=== PATIENT | female | born 1960 | race Caucasian/White ===

== ENCOUNTER 2020-05-20 07:02 | Outpatient (REF) | payer OTHER, SELFPAY ==
[2020-05-20 07:38] LABS: MANUAL DIFF FLAG NO
[2020-05-20 07:40] LABS: Basophils Absolute Auto 0.1 X10*3/uL (0.0-0.2); Basophils Percent Auto 0.9 % (0-2); Eosinophils Absolute Auto 0.2 X10*3/uL (0.0-0.4); Hematocrit 45.7 % (37-47); Hemoglobin 15.3 g/dl (12.0-16.0); Imm Gran Abs Auto 0.01 X10*3/uL (0.00-0.03); Imm Gran Pct Auto 0.2 % (0.0-0.4); Lymphocytes Absolute Auto 2.2 X10*3/uL (1.2-4.9); Lymphocytes Percent Auto 34.8 % (20-40); Mean Corpuscular HGB Conc 33.5 g/dl (31.0-35.0); Mean Corpuscular Hemoglobin 29.6 pg (27.0-33.0); Mean Corpuscular Volume 88.4 fL (80-98); Mean Platelet Volume 9.3 fL (9.4-12.3); Monocytes Absolute Auto 0.5 X10*3/uL (0.1-1.2); Monocytes Percent Auto 7.1 % (2-11); Neutrophils Absolute Auto 3.4 X10*3/uL (2.0-8.3); Platelet Count 278 X10*3/uL (160-400); Red Blood Count 5.17 X10*6/uL (4.20-5.50); White Blood Count 6.3 X10*3/uL (4.8-10.8)
[2020-05-20 08:35] LABS: Alanine Aminotransferase 18 U/L (0-31); Albumin Level 4.2 g/dL (3.5-5.0); Alkaline Phosphatase 97 U/L (39-117); Anion Gap 10 (12-20); Aspartate Amino Transferase 14 U/L (5-31); Bilirubin Total 0.6 mg/dL (0.0-1.0); Blood Urea Nitrogen 15 mg/dL (9-16); Calcium 9.6 mg/dL (8.4-10.2); Carbon Dioxide 27 mmol/L (22-29); Chloride 106 mmol/L (96-108); Cholesterol 199 mg/dL; Estimated Glomerular Filt Rate > 60; Glucose Fasting 87 mg/dL (60-99); HDL Cholesterol 61 mg/dL; LDL Cholesterol Calculated 119 mg/dl; Potassium 4.3 mmol/L (3.3-5.1); Sodium 139 mmol/L (135-145); Total Protein 6.9 g/dL (6.5-8.0); Triglycerides 96 mg/dL
== END 2020-05-20 07:03 | disposition home or self-care (01) ==
LOC: HO.LAB 07:02
PROVIDERS: PCP Internal Medicine; Visit Provider Internal Medicine
DX: Z00.00 Encounter for general adult medical examination without abnormal findings (principal); E11.9 Type 2 diabetes mellitus without complications; E03.9 Hypothyroidism, unspecified
CPT/HCPCS: 36415; 80053; 80061; 84443; 85025

== ENCOUNTER 2021-03-19 07:53 | Outpatient (REF) | payer OTHER, SELFPAY ==
[2021-03-19 08:04] LABS: MANUAL DIFF FLAG NO
[2021-03-19 09:56] LABS: Basophils Percent Auto 0.4 % (0-2); Eosinophils Absolute Auto 0.1 X10*3/uL (0.0-0.4); Eosinophils Percent Auto 1.9 % (0-4); Hematocrit 46.3 % (37.0-47.0); Hemoglobin 15.3 g/dl (12.0-16.0); Imm Gran Abs Auto 0.01 X10*3/uL (0.00-0.03); Imm Gran Pct Auto 0.2 % (0.0-0.4); Lymphocytes Absolute Auto 1.1 X10*3/uL (1.2-4.9); Lymphocytes Percent Auto 22.8 % (20-40); Mean Corpuscular Hemoglobin 29.5 pg (27.0-33.0); Mean Corpuscular Volume 89.2 fL (80.0-98.0); Mean Platelet Volume 9.8 fL (9.4-12.3); Monocytes Absolute Auto 0.6 X10*3/uL (0.1-1.2); Monocytes Percent Auto 11.9 % (2-11); Neutrophils Percent Auto 62.8 % (45-73); Platelet Count 261 X10*3/uL (160-400); Red Blood Count 5.19 X10*6/uL (4.20-5.50); Red Cell Distribution Width 14.3 % (11.0-16.0); White Blood Count 4.8 X10*3/uL (4.8-10.8)
[2021-03-19 10:25] LABS: Alanine Aminotransferase 21 U/L (0-31); Albumin Level 4.2 g/dL (3.5-5.0); Alkaline Phosphatase 105 U/L (39-117); Anion Gap 10 (12-20); Aspartate Amino Transferase 16 U/L (5-31); Bilirubin Total 0.5 mg/dL (0.0-1.0); Blood Urea Nitrogen 15 mg/dL (9-16); Calcium 9.5 mg/dL (8.4-10.2); Carbon Dioxide 27 mmol/L (22-29); Chloride 108 mmol/L (96-108); Cholesterol 211 mg/dL; Estimated Glomerular Filt Rate > 60; Glucose Fasting 90 mg/dL (60-99); HDL Cholesterol 55 mg/dL; LDL Cholesterol Calculated 136 mg/dl; Potassium 4.4 mmol/L (3.3-5.1); Sodium 141 mmol/L (135-145); Triglycerides 102 mg/dL
[2021-03-19 10:38] LABS: Thyroid Stimulating Hormone 0.56 uIU/mL (0.32-4.0); Vitamin D 25-OH Total 26.8 ng/mL (>30)
== END 2021-03-19 07:54 | disposition home or self-care (01) ==
LOC: HO.LAB 07:53
PROVIDERS: PCP Internal Medicine; Visit Provider Internal Medicine
DX: Z00.00 Encounter for general adult medical examination without abnormal findings (principal); Z13.0 Encounter for screening for diseases of the blood and blood-forming organs and certain disorders involving the immune mechanism; Z13.9 Encounter for screening, unspecified
CPT/HCPCS: 36415; 80053; 80061; 82306; 84443; 85025

== ENCOUNTER 2021-04-19 09:36 | Outpatient (REF) | payer OTHER, SELFPAY ==
--- NOTE | ~2021-04-19 | MR_ITS ---
EXAMINATION: MR BREAST WITHOUT AND WITH CONTRAST, BILATERAL CLINICAL INFORMATION: High-risk screening. Mother and sister with premenopausal breast cancer. Left breast surgery. Dense breasts reported. Right breast fibroadenoma reported at 9 o'clock following ultrasound biopsy. COMPARISON: No images available for comparison at this time. TECHNIQUE: Utilizing a high-field scanner and dedicated breast coil, and prior to the administration of contrast, T1-weighted sequences without fat-saturation were obtained in the axial and sagittal plane. Axial fat-saturated T1 and T2-weighted sequences were also acquired. After the administration of contrast, multiple sequential dynamic T1-weighted sequences were obtained through both breasts in the axial plane with fat-saturation. Subtracted images were reviewed. CAD postprocessing with 3-D reconstructions, maximum intensity projections and kinetic analysis was performed by the interpreting radiologist at an independent workstation and reviewed as a portion of this exam. CONTRAST DOSE: The patient received 6 mL of Gadavist intravenously without incident. FINDINGS: The breasts appear comprised of dense fibroglandular parenchyma. The tissue undergoes moderate background enhancement. LEFT BREAST: A reniform 6 mm mass at 2 o'clock posteriorly (image 53/106) is T2 bright with mixed enhancement kinetics, consistent with an intraparenchymal node. A 2 mm focus of enhancement at 5 o'clock, 2 cm from the nipple, (image 85/106). T2 isointense with type III rapid washout enhancement kinetics. RIGHT BREAST: A 12 mm mass at 9 o'clock, 4 cm from the nipple. Associated clip artifact. T2 bright with type I and type II plateau enhancement kinetics. Fibroadenoma reported at outside biopsy on 07/08/2016 with size noted at 10 mm on ultrasound. The axillary lymph nodes are morphologically normal. No suspicious internal mammary lymph nodes are seen. The imaged portions of the chest and upper abdomen are grossly unremarkable. MR/MR breast BI wo con IMPRESSION: 1. A 2 mm focus of left breast enhancement at 5 o'clock. 2. A left breast intramammary node at 2 o'clock. 3. A previously biopsied right breast mass at 9 o'clock. ASSESSMENT: LEFT BREAST: BI-RADS 0 - Incomplete: Needs additional imaging. RIGHT BREAST: BI-RADS 0 - Incomplete: Needs additional imaging. RECOMMENDATIONS: Prior studies for comparison.
== END 2021-04-19 09:37 | disposition home or self-care (01) ==
LOC: HO.MRI 09:36
PROVIDERS: Visit Provider Internal Medicine
DX: R92.2 Inconclusive mammogram (principal)
CPT/HCPCS: 77047; A9585

== ENCOUNTER 2021-05-13 10:49 | Outpatient (REF) | payer OTHER, SELFPAY ==
--- NOTE | ~2021-05-13 | XR_ITS ---
EXAMINATION: XR KNEE, RIGHT CLINICAL INFORMATION: Right knee pain. COMPARISON: None TECHNIQUE: Two views of the right knee. FINDINGS: Mild femoral-tibial degenerative joint changes are seen with mild chondrocalcinosis. There is no acute fracture, dislocation or joint effusion. The soft tissues are unremarkable. XR/XR knee RT 2V IMPRESSION: Mild femoral-tibial degenerative joint changes. No acute abnormality.
--- NOTE | ~2021-05-13 | XR_ITS ---
EXAMINATION: XR KNEE, LEFT CLINICAL INFORMATION: Left knee pain. COMPARISON: None TECHNIQUE: Two views of the left knee. FINDINGS: Mild femoral-tibial degenerative joint changes are seen with mild chondrocalcinosis. There is a small suprapatellar joint effusion. No acute fractures seen. The soft tissues are unremarkable. XR/XR knee LT 2V IMPRESSION: 1. Mild femoral-tibial degenerative joint changes. 2. Small suprapatellar joint effusion.
== END 2021-05-13 10:50 | disposition home or self-care (01) ==
LOC: HO.XRAY 10:49
PROVIDERS: PCP Internal Medicine; Visit Provider Internal Medicine
DX: M25.561 Pain in right knee (principal); M25.562 Pain in left knee
CPT/HCPCS: 73560

== ENCOUNTER 2022-03-15 11:37 | Outpatient (REF) | payer OTHER, SELFPAY ==
[2022-03-15 11:52] LABS: MANUAL DIFF FLAG NO
[2022-03-15 12:35] LABS: Basophils Percent Auto 0.7 % (0-2); Eosinophils Absolute Auto 0.1 X10*3/uL (0.0-0.4); Eosinophils Percent Auto 2.3 % (0-4); Hematocrit 46.4 % (37.0-47.0); Hemoglobin 15.8 g/dl (12.0-16.0); Imm Gran Abs Auto 0.01 X10*3/uL (0.00-0.03); Imm Gran Pct Auto 0.2 % (0.0-0.4); Lymphocytes Absolute Auto 2.1 X10*3/uL (1.2-4.9); Lymphocytes Percent Auto 34.8 % (20-40); Mean Corpuscular HGB Conc 34.1 g/dl (31.0-35.0); Mean Corpuscular Hemoglobin 29.8 pg (27.0-33.0); Mean Corpuscular Volume 87.5 fL (80.0-98.0); Mean Platelet Volume 9.3 fL (9.4-12.3); Monocytes Absolute Auto 0.7 X10*3/uL (0.1-1.2); Monocytes Percent Auto 11.2 % (2-11); Neutrophils Absolute Auto 3.1 x10*3/uL (2.0-8.3); Neutrophils Percent Auto 50.8 % (45-73); Platelet Count 276 X10*3/uL (160-400)
[2022-03-15 12:59] LABS: Anion Gap 12 (12-20); Blood Urea Nitrogen 13 mg/dL (9-16); Calcium 9.3 mg/dL (8.4-10.2); Carbon Dioxide 25 mmol/L (22-29); Chloride 108 mmol/L (96-108); Estimated Glomerular Filt Rate > 60; Glucose Random 91 mg/dL (60-115); Potassium 4.5 mmol/L (3.3-5.1); Sodium 140 mmol/L (135-145)
== END 2022-03-15 11:38 | disposition home or self-care (01) ==
LOC: HO.LAB 11:37
PROVIDERS: PCP Internal Medicine; Visit Provider Internal Medicine
DX: R10.9 Unspecified abdominal pain (principal); D64.9 Anemia, unspecified
CPT/HCPCS: 36415; 80048; 85025

== ENCOUNTER 2022-03-17 17:08 | Observation (INO) | payer OTHER, SELFPAY ==
--- NOTE | ~2022-03-17 | US_ITS ---
EXAMINATION: US ABDOMEN LIMITED CLINICAL INFORMATION: Epigastric pain. COMPARISON: None TECHNIQUE: Real-time imaging of the right upper quadrant abdominal viscera. FINDINGS: PANCREAS: Normal. LIVER: Normal. The liver is normal in size. The liver contour is normal. Parenchymal echogenicity is normal. No focal hepatic lesion. There is no intrahepatic biliary duct dilatation seen. GALLBLADDER: 4 mm calcific structure within the gallbladder probably a stone. The gallbladder is physiologically distended without evidence of , sludge, polyps, wall thickening or pericholecystic fluid. Technologist reported tenderness pressing on the gallbladder. No other signs to suggest cholecystitis. COMMON BILE DUCT: Normal in caliber measuring 0.4 cm in diameter. FREE FLUID: None. US/US abdomen limited IMPRESSION: * There is 4 mm echogenic structure within the gallbladder likely a gallstone. *Technologist reported tenderness pressing on the gallbladder however no other signs to suggest cholecystitis. No gallbladder wall thickening, pericholecystic fluid or dilatation of CBD, If there is high index of suspicion for possible cholecystitis, May consider correlation with follow-up HIDA scan.
--- NOTE | ~2022-03-17 | CT_ITS ---
EXAMINATION: CT ABDOMEN AND PELVIS WITHOUT CONTRAST CLINICAL INFORMATION: Melena COMPARISON: None TECHNIQUE: Multidetector volumetric imaging was performed from the superior aspect of the liver through the pubic symphysis. Sagittal and coronal reformatted images were obtained on the technologist's workstation. This CT examination was performed using dose optimization techniques as appropriate, variously including the following: *Automated exposure control *Adjustment of mA and/or kV according to patient size (this includes techniques or standardized protocols for targeted exams where dose is matched to indication/reason for exam; i.e. extremities or head) *Use of iterative reconstruction technique DLP: 389 mGy-cm FINDINGS: LUNG BASES: The visualized lung bases are unremarkable. LIVER, GALLBLADDER, AND BILIARY TREE: The liver is normal in size, shape, and attenuation. No focal hepatic lesion or biliary ductal dilatation is present. There is a 2 mm gallbladder wall calcification. No wall thickening seen. No pericholecystic fluid collection. PANCREAS: Unremarkable. SPLEEN: Unremarkable. ADRENAL GLANDS: Unremarkable. KIDNEYS AND URETERS: The kidneys are normal in size, shape, and attenuation. There are several radiopaque calculi a 2 mm in the upper pole, 1 mm in the lower pole left kidney, 2 mm in the lower pole right kidney. No caliectasis seen. There is no hydronephrosis. Is a 2 mm radiopaque stones in the upper and lower pole. BLADDER: Unremarkable. GASTROINTESTINAL TRACT: There is scattered oral contrast and diverticula seen throughout the colon there is mild mural thickening involving the sigmoid colon but no pericolic fat stranding seen. Findings are suspicious for inflammatory or infectious colitis. ABDOMINAL WALL: No significant hernia is appreciated. LYMPH NODES: There are small mesenteric lymph nodes. VASCULAR: Unremarkable. PELVIC VISCERA: The uterus is anteverted and appears unremarkable. No free fluid. No abnormal pelvic or inguinal lymph nodes. OSSEOUS STRUCTURES: Unremarkable. CT/CT abdomen pelvis wo IV con IMPRESSION: 1. Diffuse colonic diverticulosis without diverticulitis. There is mild mural thickening involving the sigmoid colon but no pericolic fat stranding seen. Findings are suspicious for inflammatory or infectious colitis. 2. Bilateral nonobstructive radiopaque renal calculi without caliectasis or hydronephrosis. 3. Punctate calcification along the gallbladder wall less likely stone Fleischner guidelines were followed.
--- NOTE | 2022-03-17 17:25 | ED.GIBLEED ---
HPI - GI Bleed General Stated complaint: Black stool Related Data Previous Rx's Medication Instructions Recorded valacyclovir 500 mg tablet 1,000 mg PO BID #20 tabs 07/23/21 omeprazole 20 mg tablet,delayed 20 mg PO BID #60 tabs 03/15/22 release Allergies Allergy/AdvReac Type Severity Reaction Status Date / Time No Known Allergies Allergy Verified 03/15/22 11:22 [facility] Past Medical History Medical History Herpes stomatitis Surgical History History of fusion of cervical spine Family History Family History Mother No problems noted. Father No problems noted. Social History Social History Housing: House Alcohol intake: never Patient Tobacco Use Status: Current everyday Tobacco user Tobacco use type: Cigarette Cigarettes Per Day: 5 e-Cigarette/Vaping Use: Never Used Second Hand Smoke Exposure: Yes service: No Current occupational status: employed Cognitive needs: No Hearing needs: No Vision needs: No Course Course Course Narrative: This is a rapid medical exam. deferred additional HPI, ROS, PE to primary provider. 62 yo female here with upper abdominal pain/abdominal distention since Monday, started to have black stools over the last few days. No nausea, vomiting, fevers. No NSAID use. No alcohol use. NO history of PUD/gastritis. Will obtain labs, UA, testing for flu, covid, rsv. VSS Discharge Plan Discharge Prescriptions: No Action valacyclovir 500 mg tablet 1,000 mg PO BID Qty: 20 0RF omeprazole 20 mg tablet,delayed release (DR/EC) 20 mg PO BID Qty: 60 1RF
[2022-03-17 17:26] VITALS: BP 131/77; PULSE 82; RESP 18; TEMP 37.1; O2SAT 99; BMI 23.3
[2022-03-17 17:51] LABS: MANUAL DIFF FLAG NO
[2022-03-17 17:54] LABS: Basophils Absolute Auto 0.1 X10*3/uL (0.0-0.2); Basophils Percent Auto 0.9 % (0-2); Eosinophils Absolute Auto 0.2 X10*3/uL (0.0-0.4); Eosinophils Percent Auto 2.6 % (0-4); Hematocrit 45.2 % (37.0-47.0); Hemoglobin 15.2 g/dl (12.0-16.0); Imm Gran Abs Auto 0.02 X10*3/uL (0.00-0.03); Imm Gran Pct Auto 0.3 % (0.0-0.4); Lymphocytes Absolute Auto 2.8 X10*3/uL (1.2-4.9); Lymphocytes Percent Auto 40.3 % (20-40); Mean Corpuscular HGB Conc 33.6 g/dl (31.0-35.0); Mean Corpuscular Hemoglobin 29.4 pg (27.0-33.0); Mean Corpuscular Volume 87.4 fL (80.0-98.0); Monocytes Absolute Auto 0.5 X10*3/uL (0.1-1.2); Monocytes Percent Auto 7.7 % (2-11); Neutrophils Absolute Auto 3.4 x10*3/uL (2.0-8.3); Neutrophils Percent Auto 48.2 % (45-73); Platelet Count 281 X10*3/uL (160-400); Red Blood Count 5.17 X10*6/uL (4.20-5.50); Red Cell Distribution Width 13.8 % (11.0-16.0)
[2022-03-17 17:58] LABS: Appearance Urine Clear; Color Urine Yellow; Glucose Urine UA Negative (Negative); Leukocyte Esterase Urine Negative (Negative); Nitrite Urine Negative (Negative); PH 6.5 (5.0-9.0); Urine Blood Negative (Negative); Urine Ketones Negative (Negative); Urine Protein Negative (Neg-Trace)
[2022-03-17 17:59] LABS: Prothrombin Time 11.4 SEC (10.0-13.1)
[2022-03-17 18:09] LABS: Alanine Aminotransferase 27 U/L (0-31); Albumin Level 4.1 g/dL (3.5-5.0); Alkaline Phosphatase 98 U/L (39-117); Anion Gap 10 (12-20); Aspartate Amino Transferase 16 U/L (5-31); Bilirubin Direct < 0.2 mg/dL (0.0-0.5); Bilirubin Total 0.3 mg/dL (0.0-1.0); Blood Urea Nitrogen 15 mg/dL (9-16); Calcium 9.5 mg/dL (8.4-10.2); Carbon Dioxide 26 mmol/L (22-29); Chloride 110 mmol/L (96-108); Creatinine Clr Calc Pharmacy 62.6; Estimated Glomerular Filt Rate > 60; Glucose Random 99 mg/dL (60-115); Potassium 4.3 mmol/L (3.3-5.1); Sodium 142 mmol/L (135-145); Total Protein 6.6 g/dL (6.5-8.0)
[2022-03-17 18:37] LABS: Influenza A PCR NEGATIVE (Negative); Influenza B PCR NEGATIVE (Negative); Resp Syncy Virus RNA Qual PCR NEGATIVE (Negative); SARS COV2 PCR INHOUSE NEGATIVE (Negative)
[2022-03-17 20:36] VITALS: BP 117/65; PULSE 65; RESP 16; TEMP 36.8; O2SAT 97
--- NOTE | 2022-03-17 21:30 | ED_ITS ---
HPI - GI Bleed General Chief complaint: Abdominal Pain Stated complaint: Black stool Time Seen by Provider: 03/17/22 21:21 Source: patient Mode of arrival: ambulatory Limitations: no limitations History of Present Illness HPI Narrative: 62-year-old female came in for evaluation of black stool. Patient's symptoms started 6 days ago with upper epigastric abdominal discomfort, then patient started to notice black stool today patient started to notice stool is black mixed with maroon color, patient complaining of very mild epigastric abdominal pain, but no nausea, no vomiting, no diarrhea, no recent use of antibiotic, no recent travel. Patient otherwise very healthy decline using any medication or anticoagulation therapy in particular. Had her 1st screening colonoscopy in her 50s and was unremarkable. Patient declines smoking or drinking alcohol only smokes pot sporadically. Related Data Previous Rx's Medication Instructions Recorded valacyclovir 500 mg tablet 1,000 mg PO BID #20 tabs 07/23/21 omeprazole 20 mg tablet,delayed 20 mg PO BID #60 tabs 03/15/22 release Allergies Allergy/AdvReac Type Severity Reaction Status Date / Time No Known Allergies Allergy Verified 03/15/22 11:22 Review of Systems Review of Systems: All other systems are reviewed and are negative Constitutional: Reports as per HPI and Reports no additional constitutional complaints Eyes: Reports as per HPI and Reports no additional eye complaints Reports system reviewed and no additional complaints, except as documented Cardiovascular: Reports as per HPI and Reports no additional cardiovascular complaints Respiratory: Reports as per HPI and Reports no additional respiratory complaints Gastrointestinal: Reports as per HPI and Reports no additional gastrointestinal complaints Genitourinary: Reports no additional female genitourinary complaints Musculoskeletal: Reports no additional musculoskeletal complaints Skin/Breast: Reports system reviewed and no additional complaints, except as docu Psychiatric: Reports no additional psychiatric complaints Endocrine: Reports no additional endocrine complaints Hematologic/Lymphatic: Reports no additional hematologic/lymphatic complaints Allergic/Immunologic: Reports no additional allergic/immunologic complaints Reports system reviewed and no additional complaints, except as documented and Reports Abnormal speech present [facility] Past Medical History Medical History Herpes stomatitis Surgical History History of fusion of cervical spine Family History Family History Mother No problems noted. Father No problems noted. Social History Social History Housing: House Alcohol intake: never Patient Tobacco Use Status: Current everyday Tobacco user Tobacco use type: Cigarette Cigarettes Per Day: 5 e-Cigarette/Vaping Use: Never Used Second Hand Smoke Exposure: Yes Advance Directives: No Advance Directives Information Provided: Yes service: No Current occupational status: employed Cognitive needs: No Hearing needs: No Vision needs: No Physical Exam Vital Signs: Vital Signs: Last Vital Signs Temp 98 F 03/17/22 22:06 Pulse 64 03/17/22 22:06 Resp 12 03/17/22 22:06 BP 117/62 03/17/22 22:06 Pulse Ox 96 03/17/22 22:06 O2 Del Method 03/17/22 22:06 BMI result Body Mass Index 23.3 Vital signs have been reviewed as appeared to be correct. Blood pressure normal. Heart rate normal. Respiration rate normal. Temperature normal. Oxygen saturation normal. Appearance: Alert. Oriented X3. No acute distress. Head: Normal external exam. Normocephalic. Atraumatic. No Estrella signs noted. No raccoon eyes noted Eyes: PERRLA. EOMI. Conjunctiva and sclera normal. Eyelids normal. ENT: TM's Normal. Pharynx normal. Uvula midline. Moist mucous membranes. No trismus noted. No drooling noted. No muffled voice noted. Neck: Normal inspection. Neck supple. FROM. No adenopathy. Thyroid Normal. No meningeal signs. No neck mass noted. CVS: Normal heart rate and rhythm. Heart sound normal. No murmurs noted. Pulses normal throughout. Respiratory: No respiratory distress. Painless inspiration. Breath sounds normal. No wheezes/rales/rhonchi noted. Chest nontender. No accessory muscle usage noted or decreased air movement noted. Abdomen: Soft and nontender. Bowel sounds normal in all 4 quadrants. No distention noted. No organomegaly noted. No visible injury noted. Rectal exam: Black stool guaiac positive. Back: No CVA tenderness. Full range of motion noted. Skin: Skin warm and dry. Normal skin color. Normal skin turgor. No rashes/lesions/lacerations noted. Extremities: No lower extremity edema. Extremities exhibit normal range of motion. Extremities nontender. Neuro: Oriented X 3. Cranial nerve exam: II-XII are grossly intact No motor deficit. No sensory deficit. Reflexes normal. Course Course Course Narrative: 62-year-old female came in for evaluation of melena and black stool, patient is not taking any anticoagulation, very mild epigastric pain and tenderness, no recent use of NSAIDs. CT abdomen pelvis is unremarkable. Start the patient on Protonix, admit for further evaluation. Medications Administered Discontinued Medications Generic Name Dose Route Start Last Admin Trade Name Freq PRN Reason Stop Dose Admin Pantoprazole Sodium 40 mg 03/17/22 21:29 03/17/22 21:56 Pantoprazole Sodium 40 Mg/10 Ml Vial IVPUSH 03/17/22 21:30 40 mg ONCE ONE Administration Medical Decision Making Differential Diagnosis Differential Diagnoses: The differential diagnosis associated with the presentation includes (For GI bleeding/perforated ulcer/gastritis/anemia/coagulopathy) Admission/Observation Consideration of admission/observation: Escalation of care including ad mission/observation considered Consult Healthcare Provider Management of the patient was discussed with: Hospitalist Lab Data MDM Lab Attestation statement: I reviewed the patient's lab results. Result Diagrams: 03/17/22 17:46 03/17/22 17:46 Labs: Lab Results 03/17/22 03/17/22 03/17/22 Range/Units 17:44 17:45 17:46 WBC 7.0 (4.8-10.8) X10*3/uL RBC 5.17 (4.20-5.50) X10*6/uL Hgb 15.2 (12.0-16.0) g/dl Hct 45.2 (37.0-47.0) % MCV 87.4 (80.0-98.0) fL MCH 29.4 (27.0-33.0) pg MCHC 33.6 (31.0-35.0) g/dl RDW 13.8 (11.0-16.0) % Plt Count 281 (160-400) X10*3/uL MPV 9.0 L (9.4-12.3) fL Immature Gran % (Auto) 0.3 (0.0-0.4) % Neut % (Auto) 48.2 (45-73) % Lymph % (Auto) 40.3 H (20-40) % [place] % (Auto) 7.7 (2-11) % Eos % (Auto) 2.6 (0-4) % Baso % (Auto) 0.9 (0-2) % Lymph # (Auto) 2.8 (1.2-4.9) X10*3/uL [place] # (Auto) 0.5 (0.1-1.2) X10*3/uL Eos # (Auto) 0.2 (0.0-0.4) X10*3/uL Baso # (Auto) 0.1 (0.0-0.2) X10*3/uL Abs Immat Gran (auto) 0.02 (0.00-0.03) X10*3/uL Absolute Neuts (auto) 3.4 (2.0-8.3) x10*3/uL Absolute Nucleated RBC 0.000 (0.0-0.012) X10*3/uL Nucleated RBC % (auto) 0.0 (0.0-0.2) /100WBC PT (10.0-13.1) SEC INR (0.9-1.1) Sodium (135-145) mmol/L Potassium (3.3-5.1) mmol/L Chloride (96-108) mmol/L Carbon Dioxide (22-29) mmol/L Anion Gap (12-20) BUN (9-16) mg/dL Creatinine (0.5-1.4) mg/dL Estim Creat Clear Calc Estimated GFR Random Glucose (60-115) mg/dL Calcium (8.4-10.2) mg/dL Total Bilirubin (0.0-1.0) mg/dL Direct Bilirubin (0.0-0.5) mg/dL AST (5-31) U/L ALT (0-31) U/L Alkaline Phosphatase (39-117) U/L Total Protein (6.5-8.0) g/dL Albumin (3.5-5.0) g/dL Urine Color Yellow Urine Appearance Clear Urine pH 6.5 (5.0-9.0) Ur Specific [place] 1.020 (1.005-1.025) Urine Protein Negative (Neg-Trace) mg/dL Urine Glucose (UA) Negative (Negative) mg/dL Urine Ketones Negative (Negative) mg/dL Urine Blood Negative (Negative) Urine Nitrite Negative (Negative) Ur Leukocyte Esterase Negative (Negative) Stool Occult Blood (NEGATIVE) Influenza Type A (PCR) NEGATIVE (Negative) Influenza Type B (PCR) NEGATIVE (Negative) RSV RNA Qual (PCR) NEGATIVE (Negative) SARS-CoV-2 RNA (RT-PCR) NEGATIVE (Negative) 03/17/22 03/17/22 03/17/22 Range/Units 17:46 17:46 21:49 WBC (4.8-10.8) X10*3/uL RBC (4.20-5.50) X10*6/uL Hgb (12.0-16.0) g/dl Hct (37.0-47.0) % MCV (80.0-98.0) fL MCH (27.0-33.0) pg MCHC (31.0-35.0) g/dl RDW (11.0-16.0) % Plt Count (160-400) X10*3/uL MPV (9.4-12.3) fL Immature Gran % (Auto) (0.0-0.4) % Neut % (Auto) (45-73) % Lymph % (Auto) (20-40) % [place] % (Auto) (2-11) % Eos % (Auto) (0-4) % Baso % (Auto) (0-2) % Lymph # (Auto) (1.2-4.9) X10*3/uL [place] # (Auto) (0.1-1.2) X10*3/uL Eos # (Auto) (0.0-0.4) X10*3/uL Baso # (Auto) (0.0-0.2) X10*3/uL Abs Immat Gran (auto) (0.00-0.03) X10*3/uL Absolute Neuts (auto) (2.0-8.3) x10*3/uL Absolute Nucleated RBC (0.0-0.012) X10*3/uL Nucleated RBC % (auto) (0.0-0.2) /100WBC PT 11.4 (10.0-13.1) SEC INR 1.0 (0.9-1.1) Sodium 142 (135-145) mmol/L Potassium 4.3 (3.3-5.1) mmol/L Chloride 110 H (96-108) mmol/L Carbon Dioxide 26 (22-29) mmol/L Anion Gap 10 L (12-20) BUN 15 (9-16) mg/dL Creatinine 0.78 (0.5-1.4) mg/dL Estim Creat Clear Calc 62.6 Estimated GFR > 60 Random Glucose 99 (60-115) mg/dL Calcium 9.5 (8.4-10.2) mg/dL Total Bilirubin 0.3 (0.0-1.0) mg/dL Direct Bilirubin < 0.2 (0.0-0.5) mg/dL AST 16 (5-31) U/L ALT 27 (0-31) U/L Alkaline Phosphatase 98 (39-117) U/L Total Protein 6.6 (6.5-8.0) g/dL Albumin 4.1 (3.5-5.0) g/dL Urine Color Urine Appearance Urine pH (5.0-9.0) Ur Specific [place] (1.005-1.025) Urine Protein (Neg-Trace) mg/dL Urine Glucose (UA) (Negative) mg/dL Urine Ketones (Negative) mg/dL Urine Blood (Negative) Urine Nitrite (Negative) Ur Leukocyte Esterase (Negative) Stool Occult Blood NEGATIVE (NEGATIVE) Influenza Type A (PCR) (Negative) Influenza Type B (PCR) (Negative) RSV RNA Qual (PCR) (Negative) SARS-CoV-2 RNA (RT-PCR) (Negative) Independent Interpretation I performed an independent interpretation of an: CT Scan (Abdomen and pelvis: No acute pathology.) Radiology Impression Discussion of test interpretation with radiology: I have reviewed the radiologist's reading. Discharge Plan Discharge Clinical Impression: Melena Patient Disposition: Admitted As Inpatient
[2022-03-17] MEDS: Pantoprazole Sodium 40 MG/10 ML VIAL IVPUSH (21:56)
[2022-03-17 22:05] LABS: OBS Int Ctl Valid YES; OBS1 NEGATIVE (NEGATIVE)
[2022-03-17 22:06] VITALS: BP 117/62; PULSE 64; RESP 12; TEMP 36.6; O2SAT 96
[2022-03-18] VITALS (10 sets, daily range): BP systolic 96–128; BP diastolic 51–71; PULSE 58–71; RESP 15–18; TEMP 36.2–37.1; O2SAT 94–98
--- NOTE | 2022-03-18 00:42 | P.HPHOSP_ITS ---
History of Present Illness Date of Service: 03/18/22 Chief Complaint: black stools 62-year-old female who denies any past medical history presents to the hospital with complaints of 4-5 days of black tarry stools. Patient is also complaining of epigastric abdominal pain, nonradiating, intermittent, 7 to 10/10 at its worse, no exacerbating factors. Patient reports no recent weight loss, no abdominal pain, no nausea or vomiting, no diarrhea constipation, 4th no use of iron supplements, reports a colonoscopy 10 years ago that was normal. Denies any history of colon cancer in family. denies use of NSAIDs or aspirin. On arrival to the ED patient hemodynamically stable no significant abnormal vitals Labs are significant for hemoglobin of 15.2 with hematocrit 45.2, otherwise unremarkable Abdomen pelvic CT shows diffuse colonic diverticulosis without diverticulitis, mild mural thickening involving the sigmoid colon but no very colic fat stranding, findings are suspicious for inflammatory infectious colitis patient will be admitted further managed Review of Systems Review of Systems: Yes all other systems are reviewed and are negative [facility] Medical History Herpes stomatitis Family History Mother No problems noted. Father No problems noted. Surgical History History of fusion of cervical spine Social History Housing: House Alcohol intake: never Patient Tobacco Use Status: Current everyday Tobacco user Tobacco use type: Cigarette Cigarettes Per Day: 5 e-Cigarette/Vaping Use: Never Used Second Hand Smoke Exposure: Yes Advance Directives: No Advance Directives Information Provided: Yes service: No Current occupational status: employed Cognitive needs: No Hearing needs: No Vision needs: No Meds Allergies Allergy/AdvReac Type Severity Reaction Status Date / Time No Known Allergies Allergy Verified 03/15/22 11:22 Physical Exam Vital Signs and Narrative: Vital Signs: Last Vital Signs Temp 98.1 F 03/18/22 00:37 Pulse 65 03/18/22 00:37 Resp 18 03/18/22 00:37 BP 114/55 L 03/18/22 00:37 Pulse Ox 97 03/18/22 00:37 O2 Del Method 03/18/22 00:37 BMI result Body Mass Index 23.3 Const: General: cooperative and no acute distress Orientation/consciousness: patient oriented x3 Eyes: General: appearance normal, both eyes and all related structures Resp: Effort & Inspection: normal respiratory effort Auscultation: clear to auscultation bilaterally Cardio: Rate: regular rate Rhythm: regular rhythm GI: Other: abdomen soft, no rebound or guarding Palpation (GI): Soft to palpation Auscultation: normal bowel sounds Skin: General skin exam: no rashes or lesions noted Neuro: General: patient oriented x3 Cognition (Neuro): normal cognition Extrem: General: Yes normal to inspection and Yes no pedal edema Results Labs CBC and Chem 7: 03/17/22 17:46 03/17/22 17:46 Labs: Laboratory Results - last 24 hr 03/17/22 03/17/22 03/17/22 17:44 17:45 17:46 MCV 87.4 MCH 29.4 MCHC 33.6 RDW 13.8 Plt Count 281 MPV 9.0 L Immature Gran % (Auto) 0.3 Neut % (Auto) 48.2 Lymph % (Auto) 40.3 H [place] % (Auto) 7.7 Eos % (Auto) 2.6 Baso % (Auto) 0.9 Lymph # (Auto) 2.8 [place] # (Auto) 0.5 Eos # (Auto) 0.2 Baso # (Auto) 0.1 Abs Immat Gran (auto) 0.02 Absolute Neuts (auto) 3.4 Absolute Nucleated RBC 0.000 Nucleated RBC % (auto) 0.0 PT INR Anion Gap Estim Creat Clear Calc Estimated GFR Random Glucose Calcium Total Bilirubin Direct Bilirubin AST ALT Alkaline Phosphatase Total Protein Albumin Urine Color Yellow Urine Appearance Clear Urine pH 6.5 Ur Specific [place] 1.020 Urine Protein Negative Urine Glucose (UA) Negative Urine Ketones Negative Urine Blood Negative Urine Nitrite Negative Ur Leukocyte Esterase Negative Stool Occult Blood Influenza Type A (PCR) NEGATIVE Influenza Type B (PCR) NEGATIVE RSV RNA Qual (PCR) NEGATIVE SARS-CoV-2 RNA (RT-PCR) NEGATIVE 03/17/22 03/17/22 03/17/22 17:46 17:46 21:49 MCV MCH MCHC RDW Plt Count MPV Immature Gran % (Auto) Neut % (Auto) Lymph % (Auto) [place] % (Auto) Eos % (Auto) Baso % (Auto) Lymph # (Auto) [place] # (Auto) Eos # (Auto) Baso # (Auto) Abs Immat Gran (auto) Absolute Neuts (auto) Absolute Nucleated RBC Nucleated RBC % (auto) PT 11.4 INR 1.0 Anion Gap 10 L Estim Creat Clear Calc 62.6 Estimated GFR > 60 Random Glucose 99 Calcium 9.5 Total Bilirubin 0.3 Direct Bilirubin < 0.2 AST 16 ALT 27 Alkaline Phosphatase 98 Total Protein 6.6 Albumin 4.1 Urine Color Urine Appearance Urine pH Ur Specific [place] Urine Protein Urine Glucose (UA) Urine Ketones Urine Blood Urine Nitrite Ur Leukocyte Esterase Stool Occult Blood NEGATIVE Influenza Type A (PCR) Influenza Type B (PCR) RSV RNA Qual (PCR) SARS-CoV-2 RNA (RT-PCR) Imaging Radiologist's Impressions: Impressions Abdomen/Pelvis CT 03/17/22 21:44 IMPRESSION: 1. Diffuse colonic diverticulosis without diverticulitis. There is mild mural thickening involving the sigmoid colon but no pericolic fat stranding seen. Findings are suspicious for inflammatory or infectious colitis. 2. Bilateral nonobstructive radiopaque renal calculi without caliectasis or hydronephrosis. 3. Punctate calcification along the gallbladder wall less likely stone Fleischner guidelines were followed. Assessment and Plan (1) Melena: Status: Acute (2) Abdominal pain: Status: Acute (3) Acute colitis: Status: Acute Plan 62-year-old female with no significant past medical history presents to the hospital complaints of melena as well as abdominal pain # melena - possibly secondary to Upper GI bleed - no elevated BUN, no history of GERD or gastric ulcers - was started on pantoprazole - GI consulted # abdominal pain - possibly secondary to acute colitis - no rebound or guarding - CT abdomen showing acute colitis - pain control # acute colitis - inflammatory versus infectious - afebrile, no leukocytosis, no evidence of systemic infection - will treat with Flagyl as well as ceftriaxone - denies any diarrhea - GI consult DVT prophylaxis: SCDs Time Spent With Patient Time: Total time managing care of this patient today ____ minutes. Quality Stroke Does the patient have a stroke diagnosis?: No VTE Prior VTE?: No VTE Risk Level:: Medical - low VTE Device Contraindication: Treatment Not Indicated VTE Drug Contraindication: Treatment Not Indicated
--- NOTE | 2022-03-18 00:51 | PC.NURSE ---
Pt. resting in bed. Provided pt. with warm blanket and turned down the lights. Pt. in no apparent distress. Will continue to monitor.
--- NOTE | 2022-03-18 01:56 | PC.NURSE ---
Pt. sleeping in room. Respirations are even and unlabored. No distress noted. Will continue to monitor.
[2022-03-18] MEDS: Pantoprazole Sodium 40 MG/10 ML VIAL IVPUSH ×2 (06:21→17:07)
[2022-03-18] MEDS: Acetaminophen 325 MG TABLET 650 MG PO ×2 (06:26→19:28)
[2022-03-18 07:09] LABS: MANUAL DIFF FLAG NO
[2022-03-18 07:11] LABS: Basophils Percent Auto 0.6 % (0-2); Eosinophils Absolute Auto 0.2 X10*3/uL (0.0-0.4); Hematocrit 45.2 % (37.0-47.0); Hemoglobin 15.2 g/dl (12.0-16.0); Imm Gran Abs Auto 0.02 X10*3/uL (0.00-0.03); Imm Gran Pct Auto 0.3 % (0.0-0.4); Lymphocytes Absolute Auto 2.7 X10*3/uL (1.2-4.9); Mean Corpuscular HGB Conc 33.6 g/dl (31.0-35.0); Mean Corpuscular Hemoglobin 29.2 pg (27.0-33.0); Mean Corpuscular Volume 86.9 fL (80.0-98.0); Mean Platelet Volume 9.4 fL (9.4-12.3); Monocytes Absolute Auto 0.5 X10*3/uL (0.1-1.2); Monocytes Percent Auto 8.6 % (2-11); Neutrophils Absolute Auto 2.8 x10*3/uL (2.0-8.3); Neutrophils Percent Auto 44.5 % (45-73); Platelet Count 283 X10*3/uL (160-400); Red Cell Distribution Width 13.8 % (11.0-16.0); White Blood Count 6.3 X10*3/uL (4.8-10.8)
[2022-03-18 07:28] LABS: Anion Gap 12 (12-20); Blood Urea Nitrogen 16 mg/dL (9-16); Calcium 9.5 mg/dL (8.4-10.2); Carbon Dioxide 26 mmol/L (22-29); Chloride 109 mmol/L (96-108); Creatinine Clr Calc Pharmacy 63.4; Estimated Glomerular Filt Rate > 60; Glucose Random 86 mg/dL (60-115); Potassium 4.7 mmol/L (3.3-5.1); Sodium 142 mmol/L (135-145)
--- NOTE | 2022-03-18 07:31 | PHA.MEDREC ---
Addendum entered by Jerald Baer 03/18/22 08:21: Called Pharmacy and patient stated they recently picked up omeprazole. Original Note: Pharmacy Consult ? Medication Reconciliation Pharmacy has completed the medication reconciliation. Reviewed med rec done by nursing (Carol).
[2022-03-18] MEDS: cefTRIAXone sodium 1 GM in 0.9 % Sodium Chloride 50 ML IV (08:14)
[2022-03-18] MEDS: metroNIDAZOLE 500 MG TABLET PO ×3 (09:02→23:12)
--- NOTE | 2022-03-18 11:56 | PC.NURSE ---
Patient up ambulatory to bathroom with strong independent gait
--- NOTE | 2022-03-18 13:46 | PC.NURSE ---
Patient to ENDO
--- NOTE | 2022-03-18 14:30 | HO.PM.IMPN ---
Subjective Subjective Date of Service: 03/18/22 Interval History: seen and examined this morning follow up for rectal bleeding, colitis abdominal pain controlled, no nausea or vomiting, no diarrhea Review of Systems Review of Systems: Yes all other systems are reviewed and are negative Constitutional Constitutional: Denies chills and Denies fever(s) Cardiovascular Cardiovascular: Denies chest pain, Denies palpitations and Denies dyspnea Respiratory Respiratory: Denies cough and Denies dyspnea Gastrointestinal Gastrointestinal: Denies nausea and Denies vomiting Endocrine Endocrine: Denies palpitations Physical Exam Vital Signs: Vital Signs: Last Vital Signs Temp 97.7 F 03/18/22 14:06 Pulse 62 03/18/22 14:06 Resp 15 03/18/22 14:06 BP 117/64 03/18/22 14:06 Pulse Ox 98 03/18/22 14:06 O2 Del Method 03/18/22 14:06 BMI result Body Mass Index 23.3 Const: General: comfortable, alert and awake Nutritional Appearance: thin Orientation/consciousness: patient oriented x3 Resp: Effort & Inspection: normal respiratory effort and able to speak in complete sentences Cardio: Rate: regular rate Heart sounds: S1 normal heart sound present and S2 normal heart sound present GI: Inspection: No distended Palpation (GI): Soft to palpation Neuro: General: patient oriented x3 and CN's II-XI intact bilaterally Extrem: General: Yes no pedal edema Objective Data Active Medications Acetaminophen (Acetaminophen 325 Mg Tablet) 650 mg PO Q6H PRN PRN Reason: Pain, Mild (Pain Scale 1-3) Last Admin: 03/18/22 06:26 Dose: 650 mg Documented By: KUMAR Ceftriaxone Sodium 1 gm/ (Sodium Chloride) 50 mls @ 100 mls/hr IV Q24H [facility] Last Infusion: 03/18/22 08:54 Dose: 100 mls/hr Documented By: AKIKO Metronidazole (Metronidazole 500 Mg Tablet) 500 mg PO Q8H [facility] Last Admin: 03/18/22 09:02 Dose: 500 mg Documented By: AKIKO Ondansetron HCl (Ondansetron Hcl 4 Mg/2 Ml Vial) 4 mg IVPUSH Q8H PRN PRN Reason: Nausea and Vomiting Pantoprazole Sodium (Pantoprazole Sodium 40 Mg/10 Ml Vial) 40 mg IVPUSH BID@0630,1630 [facility] Last Admin: 03/18/22 06:21 Dose: 40 mg Documented By: KUMAR Pharmacy Consult (Consult Rx Perform Med Rec) 1 each MISCELLANE ONCE PRN PRN Reason: Consult order Sodium Chloride (0.9 % Sodium Chloride Flush 3 Ml Syringe) 3 ml IVFLUSH QSHIFT [facility] Last Admin: 03/18/22 09:04 Dose: Not Given Documented By: AKIKO Non-Admin Reason: Med Not Available Labs CBC & Chem 7: 03/18/22 06:48 03/18/22 06:48 Labs: Laboratory Results - last 24 hr 03/17/22 03/17/22 03/17/22 17:44 17:45 17:46 MCV 87.4 MCH 29.4 MCHC 33.6 RDW 13.8 Plt Count 281 MPV 9.0 L Immature Gran % (Auto) 0.3 Neut % (Auto) 48.2 Lymph % (Auto) 40.3 H [place] % (Auto) 7.7 Eos % (Auto) 2.6 Baso % (Auto) 0.9 Lymph # (Auto) 2.8 [place] # (Auto) 0.5 Eos # (Auto) 0.2 Baso # (Auto) 0.1 Abs Immat Gran (auto) 0.02 Absolute Neuts (auto) 3.4 Absolute Nucleated RBC 0.000 Nucleated RBC % (auto) 0.0 PT INR Anion Gap Estim Creat Clear Calc Estimated GFR Random Glucose Calcium Total Bilirubin Direct Bilirubin AST ALT Alkaline Phosphatase Total Protein Albumin Urine Color Yellow Urine Appearance Clear Urine pH 6.5 Ur Specific [place] 1.020 Urine Protein Negative Urine Glucose (UA) Negative Urine Ketones Negative Urine Blood Negative Urine Nitrite Negative Ur Leukocyte Esterase Negative Stool Occult Blood Influenza Type A (PCR) NEGATIVE Influenza Type B (PCR) NEGATIVE RSV RNA Qual (PCR) NEGATIVE SARS-CoV-2 RNA (RT-PCR) NEGATIVE 03/17/22 03/17/22 03/17/22 17:46 17:46 21:49 MCV MCH MCHC RDW Plt Count MPV Immature Gran % (Auto) Neut % (Auto) Lymph % (Auto) [place] % (Auto) Eos % (Auto) Baso % (Auto) Lymph # (Auto) [place] # (Auto) Eos # (Auto) Baso # (Auto) Abs Immat Gran (auto) Absolute Neuts (auto) Absolute Nucleated RBC Nucleated RBC % (auto) PT 11.4 INR 1.0 Anion Gap 10 L Estim Creat Clear Calc 62.6 Estimated GFR > 60 Random Glucose 99 Calcium 9.5 Total Bilirubin 0.3 Direct Bilirubin < 0.2 AST 16 ALT 27 Alkaline Phosphatase 98 Total Protein 6.6 Albumin 4.1 Urine Color Urine Appearance Urine pH Ur Specific [place] Urine Protein Urine Glucose (UA) Urine Ketones Urine Blood Urine Nitrite Ur Leukocyte Esterase Stool Occult Blood NEGATIVE Influenza Type A (PCR) Influenza Type B (PCR) RSV RNA Qual (PCR) SARS-CoV-2 RNA (RT-PCR) 03/18/22 03/18/22 06:48 06:48 MCV 86.9 MCH 29.2 MCHC 33.6 RDW 13.8 Plt Count 283 MPV 9.4 Immature Gran % (Auto) 0.3 Neut % (Auto) 44.5 L Lymph % (Auto) 43.0 H [place] % (Auto) 8.6 Eos % (Auto) 3.0 Baso % (Auto) 0.6 Lymph # (Auto) 2.7 [place] # (Auto) 0.5 Eos # (Auto) 0.2 Baso # (Auto) 0.0 Abs Immat Gran (auto) 0.02 Absolute Neuts (auto) 2.8 Absolute Nucleated RBC 0.000 Nucleated RBC % (auto) 0.0 PT INR Anion Gap 12 Estim Creat Clear Calc 63.4 Estimated GFR > 60 Random Glucose 86 Calcium 9.5 Total Bilirubin Direct Bilirubin AST ALT Alkaline Phosphatase Total Protein Albumin Urine Color Urine Appearance Urine pH Ur Specific [place] Urine Protein Urine Glucose (UA) Urine Ketones Urine Blood Urine Nitrite Ur Leukocyte Esterase Stool Occult Blood Influenza Type A (PCR) Influenza Type B (PCR) RSV RNA Qual (PCR) SARS-CoV-2 RNA (RT-PCR) Assessment and Plan (1) Acute colitis: Status: Acute (2) Melena: Status: Acute Plan 62-year-old female with no significant past medical history presents to the hospital complaints of melena as well as abdominal pain melena no elevated BUN, no history of GERD or gastric ulcers continue IV PPI GI consult - plan for EGD today H/H wnl, follow CBC acute colitis inflammatory versus infectious no sepsis continue Flagyl, ceftriaxone GI consult DVT prophylaxis: SCDs attending - dr. anderson requires ongoing inpatient hospitalization for workup related to melena and antibiotics for colitis Time Spent With Patient Time: Total time managing care of this patient today ____ minutes. Quality Stroke Does the patient have a stroke diagnosis?: No VTE Prior VTE?: No VTE Risk Level:: Medical - low VTE Device Contraindication: Treatment Not Indicated VTE Drug Contraindication: Treatment Not Indicated
--- NOTE | 2022-03-18 15:46 | PC.NURSE ---
Patient returned from ENDO
--- NOTE | 2022-03-18 15:47 | MHC.SHP ---
Pre-Procedural Eval Section A Date of Service: 03/18/22 The patient is an INPATIENT: Yes The History & Physical has been completed within 30 days and I have reviewed it.: Yes Section B Chief Complaint: melena Allergies: Allergies Allergy/AdvReac Type Severity Reaction Status Date / Time No Known Allergies Allergy Verified 03/15/22 11:22 Plan I have reviewed the history and physical and performed a pertinent physical examination on my patient. No changes have occurred unless specified. Time Spent With Patient Time: Total time managing care of this patient today ____ minutes.
--- NOTE | 2022-03-18 15:48 | PM.EVENT ---
Event Note Date of Service: 03/18/22 Event Note: GI Consult-Full note dictated-Hx via patient and EMR Imp: 62 yo healthy female with 5 days of epigastric pain, anorexia, and bloating with associated black, tarry BM's. She denies any hematochezia, N/V, diarrhea, nor jaundice. She denies any EtOH, aspirin, nor NSAIDs. She does smoke. She denies use of Pepto Bismol and Iron. Interestingly, her Hgb has remained WNL, along with a normal BUN and Heme negative stool specimen. This may represent PUD with some bleeding. Despite the CT scan report, I don't think she has colitis based on her clinical history. Rec: EGD with MAC today. Full consent obtained for the EGD, including risks of bleeding and perforation. Continue PPI for now. If the EGD is negative I would then recommend a GB U/S. D/W patient in detail and she is comfortable with this plan. I think her antibiotics can be stopped. I don't think she needs a colonoscopy at this time. Thanks Time Spent With Patient Time: Total time managing care of this patient today ____ minutes.
--- NOTE | 2022-03-18 16:52 | PM.OP ---
Brief Operative Note Date of Service: 03/18/22 Pre-op diagnosis: Melena Post-op diagnosis: other (Hiatal hernia, GERD, Benign-appearing proximal esophageal lesion-? papilloma) Procedure: EGD with biopsies Surgeon: Vasquez Wooten Anesthesia: MAC Was an Replanting Machine Crewman used for this Procedure?: No Estimated blood loss (mL): 2.0 Pathology: other (A. Esophageal lesion at 25cm-? Papilloma B. EG Junction at 35cm) Condition: stable Disposition: PACU
--- NOTE | 2022-03-18 16:57 | PM.EVENT ---
Event Note Date of Service: 03/18/22 Event Note: GI-EGD with biopsies-Full note dictated Findings: 1. Raised benign-appearing lesion in the proximal esophagus at 25cm-biopsied x3--? Papilloma 2. Small hiatal hernia and GERD-Biopsies taken at EG Junction at 35cm 3. No sign of bleeding, mass, nor ulcer that would account for her symptoms of pain and reported black stool Rec: Check GB U/S to R/O stones despite negative CT scan in that regard. Change to oral PPI. Advance diet. Check path. No aspirin nor NSAIDs for 1 week. I don't think she has any clinical evidence of colitis and her CT report is soft in that regard. Therefore, I would stop antibiotics and observe in that regard. She will need an eventual colonoscopy for screening and evaluation of the CT report, but that could be done as an outpatient. I left her daughter a detailed VM in this regard. Thanks Time Spent With Patient Time: Total time managing care of this patient today ____ minutes.
--- NOTE | 2022-03-18 17:00 | PC.NURSE ---
Patient returned from ENDO return to baseline mentation and behavior will CTM
--- NOTE | 2022-03-18 20:43 | OP_ITS ---
SURGEON: Vasquez Wooten MD INDICATIONS: The patient presents for evaluation of reported melena and upper abdominal pain. Full consent has been obtained from her for this, including risks of bleeding and perforation. PREOPERATIVE DIAGNOSIS: Reported melena and upper abdominal pain. POSTOPERATIVE DIAGNOSIS: PROCEDURE PERFORMED: Esophagogastroduodenoscopy with biopsies. ESTIMATED BLOOD LOSS: COMPLICATIONS: ANESTHESIA: Monitored anesthesia care. ASSISTANTS: SPECIMENS: POSTOPERATIVE DIAGNOSES: Reported melena and upper abdominal pain, small hiatal hernia, gastroesophageal reflux, proximal esophageal lesion. DESCRIPTION OF PROCEDURE: The patient was placed in the left lateral decubitus position. The Olympus video gastroscope was passed in the posterior oropharynx and upper esophagus under direct vision. The scope was passed slowly to the distal esophagus. The gastroesophageal junction was seen at 35 cm. There was some slight irregularity but no evidence of any esophagitis nor any definitive Jade mucosa. There was a small hiatal hernia. The scope was advanced to the pylorus and the duodenum was cannulated to the descending portion. The duodenum including the bulb appeared normal without mass or ulceration. There was no blood in the duodenum. The scope was withdrawn back to the stomach. The gastric antrum and body appeared normal with good peristalsis. The scope was retroflexed visualizing the proximal stomach carefully, which appeared normal, without any sign of mass or ulceration. The scope was straightened. There was no blood, no coffee-grounds material in the stomach. The scope was withdrawn back in the esophagus. Biopsies were obtained at the EG junction at 35 cm. The scope was slowly withdrawn assessing the remainder of the esophagus carefully. At 25 cm was what appeared to be a benign approximately 10 mm lesion with a somewhat clear overlying mucosa, most consistent with a papilloma. Biopsies were obtained. The remainder of the esophagus appeared normal in this area. The scope was then withdraw from the patient. She tolerated the procedure well and was returned to the recovery area in stable condition. IMPRESSION: 1. Hiatal hernia, gastroesophageal reflux. 2. Benign-appearing proximal esophageal lesion, status post biopsy. PLAN: The results of the biopsies will be checked. At this point, she does not appear to be having any upper GI bleeding. In fact, although she has had the reported melena and abdominal pain, she has had a normal hemoglobin, normal BUN, and Hemoccult negative stool. All this would tend to go against any type of GI bleeding. She denies any use of Pepto-Bismol nor iron, and therefore I am not sure why her stools would be black by her description. At this point, I would recommend her diet be advanced. She will be switched over to an oral PPI given that she does describe some increasing reflux at home. She should avoid all aspirin and NSAIDs. Given her ongoing upper abdominal pain and the negative endoscopy, I shall order a limited right upper quadrant ultrasound to further assess for gallstones even though her CAT scan was otherwise not revealing. If things are stable tomorrow, and she is tolerating her diet, then she could probably be discharged. Depending upon her clinical course she may need further evaluation with a colonoscopy, small bowel series, and/or a small bowel video capsule study. MD TAYLOR Sesay/GILLES / [id number] MTDD
--- NOTE | 2022-03-18 21:53 | CONS_ITS ---
DATE OF SERVICE: 03/18/2022 REASON FOR CONSULTATION: Reported melena and upper abdominal pain. HISTORY OF PRESENT ILLNESS: This has been obtained from the patient and the medical record. The patient is a 62-year-old female who describes that she was in her usual state of good health up until about 5 days ago. Since that time, she has had a fairly persistent upper abdominal pain, which has been fairly uncomfortable for her. During these 5 days, she has noted the onset of black and tarry stool at least once a day. She does describe similar episodes of some pain in the past, but those would be relatively short lived and never associated with any sign of black stool. She has never had an upper endoscopy. She describes a colonoscopy many years ago. During the last 5 days when she was having the pain, she has not noticed any signs of jaundice, fevers, nausea, nor any vomiting. She denies any hematochezia nor any particular diarrhea. She denies any weight loss. She does not use any aspirin, NSAIDs, nor alcohol. She does smoke. Since admission to the hospital, she has continued to have her upper abdominal pain. She again has been without any vomiting nor nausea. She has been hemodynamically stable. Stool specimen was Hemoccult negative. Her hemoglobin has been very stable.She denies any use of Pepto Bismol or Iron. MEDICATIONS: At home, none. PAST MEDICAL HISTORY: Two cervical spine disk surgeries. She does have some reflux intermittently. She denies history of GA, diabetes, stroke, nor lung disease. 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 She does smoke, but reports having stopped about 2 weeks ago. She does not use any significant amounts of alcohol. She is . FAMILY HISTORY: Noncontributory. REVIEW OF SYSTEMS: CONSTITUTIONAL: Up until 5 days ago, she was doing well with good appetite and good energy. SKIN: No rash, no pruritus. CARDIAC: No chest pain. PULMONARY: No cough, no hemoptysis. GI: As above. PHYSICAL EXAMINATION: GENERAL: The patient is a pleasant, alert, comfortable-appearing female. VITAL SIGNS: Have been stable, and she has been afebrile. SKIN: Warm and dry. Nonjaundiced. CHEST: Clear. CARDIAC: Normal S1, S2. ABDOMEN: Soft, nondistended. There is some mild epigastric tenderness to palpation without mass, rebound, or guarding. LABORATORY DATA: White blood cell count 6.3, hemoglobin 15.2, MCV 87, platelets 283,000. Hemoglobin on admission last evening was 15.2. Hemoglobin on March 15 was 15.8. Platelet count this morning is 283,000. PT 11.4 with INR 1.0. Normal electrolytes. BUN 16, creatinine 0.8. Normal liver profile. She did have a CT scan of the abdomen and pelvis on admission. This describes some mild mural thickening involving the sigmoid colon but without any sign of fat stranding nor obstruction. There is no sign of any mass. The radiologist raised a suspicion for some type of inflammatory process in the colon, although again is not definitive about that. The gallbladder appeared normal on the CT scan other than a 2 mm gallbladder wall calcification. IMPRESSION: In regard to the patient's presentation, this may reflect something such as ulcer disease or significant esophagitis. While she is having black stool, interestingly, her hemoglobin has been stable during the past 24 hours with serial hemoglobins. She also had a negative Hemoccult stool specimen. At this point given her ongoing upper abdominal pain and reported black stool, even though from a clinical standpoint, there does not appear to be bleeding, I did recommend upper endoscopy for assessment to rule out any component of significant esophagitis, gastritis, and/or ulcer disease. Full consent has been obtained from her for this, including risks of bleeding and perforation. The procedure will be done with monitored anesthesia care. In the meantime, I will continue her PPI infusion. If the upper endoscopy is not revealing, then I would recommend an abdominal ultrasound to inspect the gallbladder despite the negative CT scan in this regard. If the endoscopy is negative, I would then switch her to oral PPI given her description of reflux. This has all been discussed with the patient in detail. Full consent has been obtained from her for the endoscopy, including risks of bleeding and perforation. In regard to the CT scan, raising a suspicion of colitis, she does not have any clinical history consistent with that given no reported diarrhea, hematochezia, nor mucus in the bowel movements. As such, I would recommend the antibiotics be stopped, and she will be observed in this regard. I would recommend eventual outpatient colonoscopy for both screening purposes and to rule out any underlying inflammatory process in the colon. Thank you for the consultation. MD TAYLOR Sesay/GILLES / [id number] EDDIE
[2022-03-19 03:59] VITALS: BP 121/62; PULSE 69; RESP 18; TEMP 36.9; O2SAT 96
[2022-03-19] MEDS: Omeprazole 40 MG CAPSULE.DR PO (09:05)
[2022-03-19] MEDS: 0.9 % Sodium Chloride Flush 3 ML SYRINGE IVFLUSH (09:07)
[2022-03-19 10:01] LABS: Hematocrit 44.2 % (37.0-47.0); Hemoglobin 14.8 g/dl (12.0-16.0); Mean Corpuscular HGB Conc 33.5 g/dl (31.0-35.0); Mean Corpuscular Volume 86.5 fL (80.0-98.0); Mean Platelet Volume 9.4 fL (9.4-12.3); Platelet Count 276 X10*3/uL (160-400); Red Blood Count 5.11 X10*6/uL (4.20-5.50); Red Cell Distribution Width 13.4 % (11.0-16.0); White Blood Count 6.1 X10*3/uL (4.8-10.8)
[2022-03-19 10:15] VITALS: BP 111/59; PULSE 65; RESP 18; TEMP 37; O2SAT 97
--- NOTE | 2022-03-19 11:27 | HO.POSTANES ---
Post Anesthesia Evaluation Post Anesthesia Evaluation Vital Signs: Vital Signs Temp Pulse Resp BP Pulse Ox O2 Del Method 03/19/22 10:15 98.6 F 65 18 111/59 L 97 Room Air 03/19/22 03:59 98.5 F 69 18 121/62 96 Room Air Anesthesia: Monitored Mental Status: Awake Pain Control: Satisfactory Nausea/Vomiting: None Hydration: Adequate Anesthesia-Related Issues: No Anes. Related Issues
--- NOTE | 2022-03-19 15:27 | PM.DS ---
DS: Providers Provider Date of Service: 03/19/22 Date of admission: 03/18/22 00:40 Date of discharge: 03/19/22 Primary care physician: Gabriel Ramos MD Consults: 03/18/22 00:40 Consult to Gastroenterology Routine Consulting Provider: Vasquez Wooten Reason for consultation: Melena Has provider been notified: No Attending physician on discharge: Damian Acevedo Discharging clinician: Ayse Spain DS: Diagnosis Discharge Diagnosis (1) Acute colitis: Status: Acute (2) Melena: Status: Acute DS: Summary Hospital Course Hospital Course: From H&P on day of admission 62-year-old female who denies any past medical history presents to the hospital with complaints of 4-5 days of black tarry stools. ? Patient is also complaining of epigastric abdominal pain, nonradiating, intermittent,? 7 to 10/10 at its worse, no? exacerbating factors. Patient reports no recent weight loss, no abdominal pain, no nausea or vomiting, no diarrhea constipation, 4th no use of iron supplements, reports a colonoscopy 10 years ago that was normal.? Denies any history of colon cancer in family. denies use of NSAIDs or aspirin. ? On arrival to the ED patient hemodynamically stable no significant abnormal vitals Labs are? significant for hemoglobin of 15.2 with hematocrit 45.2, otherwise unremarkable Abdomen pelvic CT shows diffuse colonic diverticulosis without diverticulitis, mild mural thickening involving the sigmoid colon but no very colic fat stranding, findings are suspicious for? inflammatory infectious colitis Abdominal pain/melena. Patient was seen in consultation by GI, she underwent EGD on March 18 which showed benign appearing lesion in the proximal esophagus which was biopsied. Also noted to have small hiatal hernia and GERD. there were no signs of bleeding, mass or ulcer. She has not had any further episodes of dark stools. H/H have remained in normal range and she was stool occult negative on exam. Initially was started on antibiotics for possible colitis seen on CT scan however history/ physical exam not consistent with colitis and per recommendation of GI, antibiotics were discontinued. Abdominal ultrasound was obtained but the report is pending at the time of discharge. She has no abdominal tenderness on exam and is tolerating a diet. She is encouraged to follow low-fat diet and avoid fatty foods. If she should have recurrent abdominal pain, she has been recommended to return to the emergency department. She has remained hemodynamically stable and patient is eager to return home. Her dose of omeprazole was increased to 40 mg and biopsy results are pending at the time of discharge. Recommend to avoid nsaids and aspirin. Time Spent with Patient Time attestation: Total time managing care of this patient today ____ minutes. Discharge coordination time: Greater than 30 minutes Quality: Safe Use of Opioids Does Pt have an Active Cancer Diagnosis on the Problem List?: No Quality: Stroke Does the patient have a stroke diagnosis?: No Physical Exam Vital Signs: Vital Signs: Last Vital Signs Temp 98.6 F 03/19/22 10:15 Pulse 65 03/19/22 10:15 Resp 18 03/19/22 10:15 BP 111/59 L 03/19/22 10:15 Pulse Ox 97 03/19/22 10:15 O2 Del Method 03/19/22 10:15 BMI result Body Mass Index 23.3 DS: Data Data Completed and Pending Pending studies at discharge: Pending at discharge 03/18/22 16:15 Surgical [PTH] Routine Labs on day of discharge: Laboratory Results - last 24 hr 03/19/22 09:39 WBC 6.1 RBC 5.11 Hgb 14.8 Hct 44.2 MCV 86.5 MCH 29.0 MCHC 33.5 RDW 13.4 Plt Count 276 MPV 9.4 Absolute Nucleated RBC 0.000 Nucleated RBC % (auto) 0.0 Discharge Plan Discharge Patient Disposition: Home, Self-Care Discharge Diagnosis: melena Referrals: Gabriel Ramos MD [Primary Care Provider] - 1 Week Discharge Medications: New omeprazole 40 mg Capsule,Delayed Release(Dr/Ec) 40 mg PO DAILY@0630 30 Days Qty: 30 0RF Discontinued omeprazole 20 mg Capsule,Delayed Release(Dr/Ec) 20 mg PO DAILY@0630 Discharge Orders: Discharge Order (Routine); Ordered 03/19/22 Ordered By: Ayse Spain Activity on Discharge: As tolerated Stand Alone Forms: Patient Portal Discharge page Care Plan Goals: see below Health Concerns: rectal bleeding/dark stools Plan of Treatment: hemoglobin and hematocrit have remained stable endoscopy revealed a benign-appearing proximal esophageal lesion which was biopsied - follow up result of biopsy dose of omeprazole was increased to 40 mg daily exam/history not consistent with colitis, no need for antibiotics avoid aspirin, NSAIDs abdominal ultrasound results are pending at the time of discharge, but you do not have any tenderness at this time. recommend low fat diet and avoid fatty foods. stay hydrated and return to the ED with any severe abdominal pain Assessment: see discharge summary Discharge Date/Time: 03/19/22 17:30
[2022-03-19 15:37] VITALS: BP 119/67; PULSE 70; RESP 17; TEMP 37.1; O2SAT 95
== END 2022-03-19 17:30 | disposition home or self-care (01) ==
LOC: HO.ED 21:36 → HO.EDOVER 03-18 00:46
PROVIDERS: Internal Medicine; Nurse Practitioner Family; Admitting Provider Internal Medicine; Emergency Provider Emergency Medicine; PCP Internal Medicine; Visit Provider Physician Assistant Medical
PROC: (CPT 43239; principal; 2022-03-18 13:20)
DX: K52.9 Noninfective gastroenteritis and colitis, unspecified (principal); K92.1 Melena; R10.13 Epigastric pain; N20.0 Calculus of kidney; F17.200 Nicotine dependence, unspecified, uncomplicated; Z20.828 Contact with and (suspected) exposure to other viral communicable diseases
CPT/HCPCS: 43239; 0241U; 36415; 74176; 76705; 80048; 80076; 81003; 82272; 85025; 85027; 85610; 88305; 96365; 96375; 96376; 99218; 99285; J0696

== ENCOUNTER 2022-03-28 11:44 | Day surgery (SDC) | payer OTHER, SELFPAY ==
[2022-03-28 11:58] VITALS: BMI 24.8
[2022-03-28 12:03] VITALS: BP 125/77; PULSE 86; RESP 18; TEMP 36.1; O2SAT 98
[2022-03-28] MEDS: Lactated Ringers 1,000 ML 50 ML IVCONT (12:28)
--- NOTE | 2022-03-28 13:28 | HO.ANESPROP2 ---
[facility] Active Problems Active Problems: All Active Problems (Updated 03/23/22 @ 00:03 by Talia Borrero) Melena (Acute) Herpesviral gingivostomatitis and pharyngotonsillitis (Acute) HSV-1 (herpes simplex virus 1) infection (Acute) Knee pain (Acute) Physical exam (Acute) Contact dermatitis (Acute) Herpes stomatitis (Acute) Past Medical History Medical History Herpes stomatitis Family History Family History Mother No problems noted. Father No problems noted. Family history of problems with anesthesia: No Surgical History Surgical History History of fusion of cervical spine History of Problems with Anesthesia: No Social History Social History Housing: House Alcohol intake: never Patient Tobacco Use Status: Current someday Tobacco user Tobacco use type: Cigarette Cigarettes Per Day: 20 e-Cigarette/Vaping Use: Never Used Second Hand Smoke Exposure: Yes Use of substances other than those prescribed or required for medical reasons: No Substance Use Frequency: Occasionally Are you DNR?: No Advance Directives: No Advance Directives Information Provided: Yes Recently lost weight without trying: No Nutrition Risks: No Nutritional Risk service: No Current occupational status: employed Cognitive needs: No Hearing needs: No Vision needs: No Meds Allergies Allergy/AdvReac Type Severity Reaction Status Date / Time No Known Allergies Allergy Verified 03/15/22 11:22 Active Medications: Current Medications Lactated Ringer's (Lr) 1,000 mls @ 50 mls/hr IVCONT .Q20H RUSTY Last Admin: 03/28/22 12:28 Dose: 50 mls/hr Sodium Biphosphate/Sodium Phosphate (Sodium Phosphate,Glynn-Dibasic 133 Ml Enema) 133 ml NM ONCE PRN PRN Reason: Poor Colonoscopy Prep Results Home Medications Medication Instructions Recorded Confirmed Last Taken Type No Known Home Meds 03/28/22 03/28/22 Unknown History Exam Exam Date and Time: March 28, 2022 1328 Height,Weight and Vital Signs: Height 5 ft 2 in Weight 61.689 kg Last Vital Signs Temp 97 F 03/28/22 12:03 Pulse 86 03/28/22 12:03 Resp 18 03/28/22 12:03 BP 125/77 03/28/22 12:03 Pulse Ox 98 03/28/22 12:03 O2 Del Method 03/28/22 12:03 Airway Mallampati Class: II TM Dist: >3cm Neck ROM: Full Heart: rr Lungs: cta Assessment and Plan Assessment Anesthesia Assessment: Anesthesia Plan Discussed and Chart Reviewed Final Anesthetic Review Family History of Problems with Anesthesia: No History of Problems with Anesthesia: No NPO: Yes ASA Class: II Final Preanesthetic Review: No Changes in Pt Med Stat, Meds/Allgs Chart Reviewed and Consent Obtained/Reviewed Patient Risk: Low Procedure Risk: Low Anesthetic Plan Anesthetic Plan: MAC: Disposition: Standard PACU
[2022-03-28 14:38] VITALS: BP 99/60; PULSE 71; RESP 16; TEMP 36.6; O2SAT 95
[2022-03-28 14:52] VITALS: BP 115/69; PULSE 65; RESP 16; TEMP 36.6; O2SAT 98
--- NOTE | 2022-03-28 14:53 | PM.OP ---
Brief Operative Note Date of Service: 03/28/22 Pre-op diagnosis: Change in BM's, abnormal CT of colon Post-op diagnosis: other (Diverticulsosis) Procedure: Colonoscopy to the cecum with biopsies Surgeon: Vasquez Wooten Anesthesia: MAC Was an Balance Wheel Hand Filer used for this Procedure?: No Estimated blood loss (mL): 2.0 Pathology: other (A. Ascending colon B. Descending colon) Condition: stable Disposition: PACU
[2022-03-28 15:01] VITALS: BP 120/70; PULSE 64; RESP 16; TEMP 36.6; O2SAT 98
--- NOTE | 2022-03-28 23:34 | OP_ITS ---
SURGEON: Vasquez Wooten MD INDICATIONS: The patient presents for evaluation of irregular bowel movements, abdominal discomfort, and abnormal CT scan of colon. Full consent has been obtained from her for this, including risks of bleeding and perforation. PREOPERATIVE DIAGNOSIS: POSTOPERATIVE DIAGNOSIS: PROCEDURE PERFORMED: Colonoscopy to cecum with biopsies. ESTIMATED BLOOD LOSS: COMPLICATIONS: ANESTHESIA: Medication used, monitored anesthesia care. ASSISTANTS: SPECIMENS: PREOPERATIVE DIAGNOSES: Irregular bowel movements, abdominal discomfort, abnormal CT scan of colon. POSTOPERATIVE DIAGNOSES: Irregular bowel movements, abdominal discomfort, abnormal CT scan of colon, rule out microscopic colitis, diverticulosis, internal and external hemorrhoids. DESCRIPTION OF PROCEDURE: The patient was placed in the left lateral decubitus position. The digital rectal exam revealed no abnormalities other than some hemorrhoids. The Olympus video pediatric colonoscope was entered into the rectum and advanced easily to the cecum. Once in the cecum, I did identify normal-appearing cecal pouch with appendiceal orifice and a normal-appearing ileocecal valve. The entire cecum and ileocecal valve appeared normal. The scope was slowly withdrawn assessing all mucosal surfaces carefully. Preparation was excellent. I did not visualize any sign of polyps, colitis, nor angiodysplasia. There was a mild amount of sigmoid diverticulosis. Random biopsies were obtained in the ascending and descending colon. In the rectum, scope was retroflexed visualizing internal hemorrhoids, but no other pathology. The rectal mucosa appeared normal. The scope was straightened and withdrawn from the patient. She tolerated the procedure well and was returned to the recovery area in stable condition. IMPRESSION: 1. Diverticulosis. 2. Rule out microscopic colitis. 3. Internal and external hemorrhoids. PLAN: The results of the biopsies will be checked. At this point, her workup has basically been negative for any significant pathology with upper endoscopy, colonoscopy, ultrasound, and CT scan. As I reviewed with her in the office last week, I advised her that she may be having some component of irritable bowel syndrome and I will send her home with a trial of an antispasmodic to use on a p.r.n. basis. She had been on omeprazole, but I told her to stop that given the negative endoscopy recently. This may very well reflect a slowly resolving viral gastroenteritis with a resultant irritable bowel type syndrome. She will be seen in followup in the office. If she continues to have significant abdominal complaints, she may need further evaluation with a small bowel series and small bowel video capsule study. However, at this point, I would hold off on those further studies and observe things on the antispasmodic and give this some more time to improve on its own. This has been discussed with her family. MD TAYLOR Sesay/GILLES / [id number]
== END 2022-03-28 15:42 | disposition home or self-care (01) ==
PROVIDERS: PCP Internal Medicine; Visit Provider Internal Medicine
PROC: 0DJD8ZZ Inspection of Lower Intestinal Tract, Via Natural or Artificial Opening Endoscopic (ICD-10-PCS; CPT 45378; principal; 2022-03-28 13:30)
DX: R19.4 Change in bowel habit (principal); R93.3 Abnormal findings on diagnostic imaging of other parts of digestive tract; R10.84 Generalized abdominal pain; K57.30 Diverticulosis of large intestine without perforation or abscess without bleeding; K64.8 Other hemorrhoids; K64.4 Residual hemorrhoidal skin tags; Z79.899 Other long term (current) drug therapy; F17.210 Nicotine dependence, cigarettes, uncomplicated
CPT/HCPCS: 45380; 88305

== ENCOUNTER 2022-07-14 11:06 | Outpatient (REF) | payer OTHER, SELFPAY ==
--- NOTE | ~2022-07-14 | XR_ITS ---
EXAMINATION: XR lumbar spine 2-3V CLINICAL INFORMATION: Reason for Exam M54.9 - Dorsalgia, unspecified COMPARISON: None TECHNIQUE: 3 views of the lumbar spine FINDINGS: 5 nonrib-bearing lumbar-type vertebral bodies. Vertebral body heights are maintained. Alignment is maintained. Mild multilevel degenerative disc disease with loss of disc space height, facet arthropathy and disc osteophyte complexes. This is worst at L3/L4. Atherosclerotic calcifications of the abdominal aorta. XR/XR lumbar spine 2-3V IMPRESSION: Mild spondylosis of the lumbar spine, as above detailed.
== END 2022-07-14 11:07 | disposition home or self-care (01) ==
LOC: HO.XRAY 11:06
PROVIDERS: PCP Internal Medicine; Visit Provider Internal Medicine
DX: M54.9 Dorsalgia, unspecified (principal)
CPT/HCPCS: 72100

== ENCOUNTER 2022-07-26 08:29 | Outpatient (REF) | payer OTHER, SELFPAY ==
[2022-07-27 23:33] LABS: HPV mRNA E6/E7 rflx Not Detected (Not Detected)
== END 2022-07-26 08:30 | disposition home or self-care (01) ==
LOC: HO.LNP 08:29
PROVIDERS: PCP Internal Medicine; Visit Provider Advanced Practice Midwife
DX: Z01.419 Encounter for gynecological examination (general) (routine) without abnormal findings (principal); Z11.51 Encounter for screening for human papillomavirus (HPV); Z98.890 Other specified postprocedural states
CPT/HCPCS: 87624; 88142

== ENCOUNTER → 2022-08-16 13:16 | Outpatient (BNVA) | payer OTHER, SELFPAY | PROVIDERS: PCP Internal Medicine; Visit Provider Surgery ==

== ENCOUNTER → 2022-09-14 14:46 | Outpatient (BNVA) | payer OTHER, SELFPAY | PROVIDERS: PCP Internal Medicine; Visit Provider Surgery ==

== ENCOUNTER 2022-10-19 08:21 | Outpatient (AMB) | payer OTHER, SELFPAY ==
--- NOTE | 2022-10-19 08:38 | MHC.PC.OV ---
Vital Signs 10/19/22 08:39 Height 5 ft 2 in Weight 134 lb 4 oz BMI 24.6 BP 112/62 Blood Pressure Location Lt brachial Position Sitting Pulse 70 Pulse Source Pulse Oximeter Pulse Oximetry (%) 96 Oxygen Delivery Method Room Air Intake Visit Reasons: lump on face Intake Note: Patient is here today for lump on right side of face Development Educator Required: No Senior Radiation Therapist: Not Required per policy Accompanied by: Self / Same As Patient Allergies No Known Allergies Allergy (Verified 10/19/22 08:39) Medication List - Last Reconciled 10/19/22 by Gabriel Ramos MD No Known Home Meds Tobacco use date assessed: 10/19/22 Dental Screening Dental Screen Date: 10/19/22 Did you have a dental visit in the last 12 months?: Yes Did you have a dental problem in the last 6 months where you did not have access to dental care?: No Was dental information given to patient?: Patient has dentist HPI lump on face HPI Details 1 month nodule on face PFSH Medical History (Updated 08/16/22 @ 15:23 by Gilmar Andrade MD) FH: breast cancer Fibroadenoma Herpes stomatitis Surgical History H/O cone biopsy of cervix History of fusion of cervical spine Family History Mother History of breast cancer Father Lung cancer Sister History of breast cancer Social History (Updated 10/19/22 @ 08:42 by JERMAINE Macrum) Housing: House Alcohol intake: never Patient Tobacco Use Status: Current someday Tobacco user Tobacco use type: Cigarette Cigarettes Per Day: 2 e-Cigarette/Vaping Use: Never Used Second Hand Smoke Exposure: Yes Substance Use Type: Marijuana service: No Current occupational status: employed Sexual orientation: Straight/Heterosexual Gender identity: Female Cognitive needs: No Hearing needs: No Vision needs: Yes (glasses) Female Reproductive History Menstrual Age of Menarche: 10 Questionnaire Thrive Questionnaire Date Thrive assessed: 07/14/22 YESENIA-7 AMB Questionnaire YESENIA-7 Date YESENIA - 7 assessed: 07/14/22 Source: Developed by Drs. Vasquez Hawkins, Gladis Kenyon, Jordan Laguerre and colleagues, with an educational jesús from [email or web address]. Review of Systems Const Denies chills, Denies headache(s) and Denies weight loss ENT Denies headache(s) Card Denies chest pain, Denies syncope, Denies irregular heart rhythm and Denies dyspnea Resp Denies chest congestion, Denies cough and Denies dyspnea GI Denies abdominal pain, Denies change in stool character, Denies nausea and Denies vomiting Musc Denies deformity and Denies joint swelling Neuro Denies syncope and Denies headache(s) Physical exam (Primary Care) Vital Signs: Last Vital Signs Pulse 70 10/19/22 08:39 BP 112/62 10/19/22 08:39 Pulse Ox 96 10/19/22 08:39 Oxygen Delivery Method Room Air 10/19/22 08:39 BMI result Body Mass Index 24.6 Tobacco/Smoking Status: Tobacco use Status Tobacco use date assessed 10/19/22 10/19/22 08:43 Patient Tobacco Use Status Current someday Tobacco 10/19/22 08:43 Tobacco use type Cigarette 10/19/22 08:43 e-Cigarette/Vaping Use Never Used 10/19/22 08:43 Thrive Assessment: Date of Thrive Assessment Date Thrive assessed 07/14/22 10/19/22 08:43 Const General: cooperative, healthy appearing and no acute distress HENMT Head: Yes normal to inspection Eyes General: appearance normal, both eyes and all related structures Neck Neck: Yes normal visual inspection Skin Other: 3 mm nodule right side of face Assessment and Plan Assessment & Plan (1) Skin nodule: Code(s): R22.9 - Localized swelling, mass and lump, unspecified Plan: ref derm Orders: Referrals Dermatology Referral R22.9 - Localized swelling, mass and lump, unspecified Coding Level of Care Code Est Pt Level 3 (03997) Diagnoses Skin nodule R22.9
[2022-10-19 08:39] VITALS: BP 112/62; PULSE 70; O2SAT 96; BMI 24.6
== END 2022-10-19 08:52 | disposition home or self-care (01) ==
PROVIDERS: PCP Internal Medicine; Visit Provider Internal Medicine
DX: R22.9 Localized swelling, mass and lump, unspecified (principal)
CPT/HCPCS: 99213

== ENCOUNTER 2022-10-25 08:56 | Outpatient (AMB) | payer OTHER, SELFPAY ==
--- NOTE | 2022-10-25 09:03 | A.OFFVIS_ITS ---
Intake Intake Visit Reasons: genetic test results *HERE* Intake Note: This patient presents for genetic test results. Patient denies complaints at this time. Oncology Admin Required: No Accompanied by: Self / Same As Patient Allergies No Known Allergies Allergy (Verified 10/25/22 09:03) Medication List - Last Reconciled 10/25/22 by Gilmar Andrade MD No Known Home Meds HPI HPI Comments History of Present Illness Details 62-year-old female patient presenting with strong family history of breast cancer in both her mother and sister. Both family members developed breast cancer in their 40s. Her mother underwent bilateral mastectomies while her sister underwent lumpectomy and chemotherapy. She is uncertain of either underwent genetic testing. Her father has a history of metastatic prostate cancer as well as lung cancer. He subsequently succumbed to the lung cancer. She presents today to discuss genetic testing given her strong family history of cancer. She reports 3 children including 2 daughters as well as an adopted child. She has a previous history of a left breast biopsy for fibroadenoma as well as a needle biopsy of the right side. Both were benign. Breast MRI obtained 04/19/2021 revealed a 2 mm focus of the left breast with enhancement at the 5 o'clock position, a left breast intramammary lymph node in the 2 o'clock position. A previously biopsy right breast mass at the 9 o'clock position measuring 10 mm, previously determined to be a fibroadenoma. She reports undergoing a a mammogram at the [facility] earlier this year although reports are not available at the time of this visit. Genetic testing performed on 09/14/2022 revealed no clinically significant mutations identified. In addition no variance of uncertain significance were identified. Her breast cancer risk score was calculated at 19.9 % and danieljerald Castillo remaining lifetime risk of breast cancer at 18.3% this places her below the threshold of 20% although with the strong family history consideration should continue a high risk strategy. [facility] Medical History FH: breast cancer Fibroadenoma Herpes stomatitis Surgical History H/O cone biopsy of cervix History of fusion of cervical spine Family History Mother History of breast cancer Father Lung cancer Sister History of breast cancer Social History Housing: House Alcohol intake: never Patient Tobacco Use Status: Current someday Tobacco user Tobacco use type: Cigarette Cigarettes Per Day: 2 e-Cigarette/Vaping Use: Never Used Second Hand Smoke Exposure: Yes Substance Use Type: Marijuana service: No Current occupational status: employed Sexual orientation: Straight/Heterosexual Gender identity: Female Cognitive needs: No Hearing needs: No Vision needs: Yes (glasses) Female Reproductive History Menstrual Age of Menarche: 10 Review of Systems Const All systems reviewed & are unremarkable except as noted in HPI and below Physical Exam Const General: no acute distress and well developed Nutritional Appearance: well nourished Orientation/consciousness: patient oriented x3 Limitations: no limitations HEENT Head: Yes normocephalic and Yes atraumatic Chest Other: Exam deferred Resp Effort & Inspection: normal respiratory effort, no audible wheezes, no cough and no respiratory distress Skin Other: Warm, dry, no rash Neuro General: patient oriented x3 Extrem Other: No edema Assessment & Plan Assessment & Plan (1) FH: breast cancer: Code(s): Z80.3 - Family history of malignant neoplasm of breast (2) At high risk for breast cancer: Code(s): Z91.89 - Other specified personal risk factors, not elsewhere classified Plan 62-year-old female patient with a strong family history of breast cancer including her mother and sister at an early age, determined to be at high risk for breast cancer herself. The patient underwent genetic testing on 09/14/2022. Findings revealed no clinically significant mutations and no mutations of uncertain significance. A copy of the report was provided to the patient. I recommended a strategy of continued close follow-up including twice yearly clinical breast examinations, yearly mammogram in yearly breast MRI. She expressed understanding and agrees with the plan. Coding Level of Care Code Est Pt Level 3 (22859) Diagnoses FH: breast cancer Z80.3 At high risk for breast cancer Z91.89
== END 2022-10-25 09:12 | disposition home or self-care (01) ==
LOC: HO.HGS 08:56
PROVIDERS: PCP Internal Medicine; Visit Provider Surgery
DX: Z80.3 Family history of malignant neoplasm of breast (principal); Z91.89 Other specified personal risk factors, not elsewhere classified
CPT/HCPCS: 99213

== ENCOUNTER → 2022-10-25 08:56 | Outpatient (BNVA) | payer OTHER, SELFPAY | PROVIDERS: PCP Internal Medicine; Visit Provider Surgery ==

== ENCOUNTER 2023-09-01 10:46 | Outpatient (AMB) | payer OTHER, SELFPAY ==
--- NOTE | 2023-09-01 11:00 | MHC.OFFVIS ---
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 She is doing well with no concerns. Attempting to eat a healthy diet and stays active with her grandchildren, gardening and walking. Currently not sexually active with partner. Denies any vaginal dryness or irritation. STI testing offered; she declines. Last pap smear; 2022, history of cone biopsy over 30 years ago with subsequent negative Pap smears prior Pap 05/09/2022 was 8 years prior no records available. Last mammogram; not up to date. Was seen by Dr. Andrade last October and was recommended to have MRI and mammogram q.6 months combined testing, she was unaware of the plan. Colonoscopy is UTD. Plans to quit smoking this August. Denies any family history of ovarian or colon cancer. FH breast cancer, personal history of BRCA testing negative. [facility] Medical History FH: breast cancer Fibroadenoma Herpes stomatitis Surgical History H/O cone biopsy of cervix History of fusion of cervical spine Family History (Updated 09/01/23 @ 11:29 by Felecia Sandoval CNM) Mother History of breast cancer Father Lung cancer Sister History of breast cancer Sister No problems noted. Social History (Updated 09/01/23 @ 11:13 by Lisy Cobb CMA) Household Members: Spouse Housing: House Alcohol intake: never Patient Tobacco Use Status: Current someday Tobacco user Tobacco use type: Cigarette Cigarettes Per Day: 2 e-Cigarette/Vaping Use: Never Used Second Hand Smoke Exposure: Yes Substance Use Type: Marijuana service: No Current occupational status: employed Current occupation: [employer] Sexual orientation: Straight/Heterosexual Gender identity: Female Cognitive needs: No Hearing needs: No Vision needs: Yes (glasses) Female Reproductive History Menstrual Age of Menarche: 10 Menopause type: natural Total pregnancies: 3 Full term: 3 Number of Living Children: 3 Date of last pap smear: 07/26/22 Review of Systems Const All systems reviewed & are unremarkable except as noted in HPI and below Reports as per HPI Eyes Reports no additional complaints ENT Reports no additional complaints Card Reports no additional complaints Resp Reports no additional complaints GI Reports as per HPI and Reports no additional complaints Reports as per HPI Musc Reports no additional complaints Skin/Breast Reports as per HPI Neuro Reports no additional complaints Psych Reports no additional complaints Endo Reports no additional complaints Sam/Lymph Reports no additional complaints Aller/Immun Reports no additional complaints Physical Exam Vital Signs: Last Vital Signs BP 116/74 09/01/23 11:07 BMI result Body Mass Index 23.2 Const General: cooperative, healthy appearing, no acute distress, well developed and alert Orientation/consciousness: patient oriented x3 HEENT Head: Yes normal to inspection Eyes General: appearance normal, both eyes and all related structures Neck Neck: Yes normal visual inspection Thyroid: Thyroid normal Chest Chest palpation & inspection: normal inspection of the chest and other (no puckering, dimpling, peau de orange, retraction, discharge, masses) Breast/axilla inspection: normal inspection of the breasts Breast/axilla palpation: normal palpation of the breasts Resp Effort & Inspection: normal respiratory effort GI Inspection: Yes normal to inspection Palpation (GI): Soft to palpation Rectal Exam - Female: deferred General: Yes bladder normal to palpation External Female Exam: normal external appearance and normal appearance of the urethra Speculum Exam - Vagina: normal appearance of the vagina, normal palpation, normal vaginal discharge and vagina atrophic Speculum Exam - Cervix: normal appearance of the cervix and normal palpation Bimanual exam- vagina & uterus: normal bimanual exam, normal palpation, uterine size normal, bladder normal to palpation, normal palpation and non-tender Bimanual Exam- Adnexa, other: no masses Skin General skin exam: no rashes or lesions noted Rashes: no rashes Neuro General: patient oriented x3 Cognition (Neuro): normal cognition Extrem General: Yes normal to inspection Psych Attitude: cooperative Thought process: Normal thought process present Assessment & Plan Assessment & Plan (1) Encounter for well woman exam with routine gynecological exam: Code(s): Z01.419 - Encounter for gynecological examination (general) (routine) without abnormal findings Category: Medical Plan Discussed: Current recommendations for pap smears per ASCCP guidelines. Breast awareness, periodic self breast exams and yearly mammogram. Maintain a healthy lifestyle, well balanced diet including Calcium 1,200 mg and Vitamin D 600 IU daily, and routine exercise. Patient plans to have reach out to Dr. Andrade about MRI scheduling and follow up. Contact the office with any postmenopausal bleeding. Patient verbalizes understanding and agrees to the plan of care. She was given opportunity to ask questions and all questions were answered to the best of my ability. RTO in 1 year for annual director of vital statistics exam. This note is constructed using voice recognition software. While every effort has been made to ensure accuracy, risk prevention engineer errors may have been included. Orders: Orders MM tomosynthesis screening BI Today Z12.31 - Encounter for screening mammogram for malignant neoplasm of breast Coding Level of Care Code Est Pt Prev Care 40-64y(17844) Diagnoses Encounter for well woman exam with routine gynecological exam Z01.419
[2023-09-01 11:07] VITALS: BP 116/74; BMI 23.2
== END 2023-09-01 11:41 | disposition home or self-care (01) ==
PROVIDERS: PCP Internal Medicine; Visit Provider Advanced Practice Midwife
DX: Z01.419 Encounter for gynecological examination (general) (routine) without abnormal findings (principal)
CPT/HCPCS: 99396

== ENCOUNTER → 2023-09-01 10:46 | Outpatient (BNVA) | payer OTHER, SELFPAY | PROVIDERS: PCP Internal Medicine; Visit Provider Advanced Practice Midwife ==

== ENCOUNTER 2023-09-14 12:49 | Outpatient (REF) | payer OTHER, SELFPAY ==
--- NOTE | ~2023-09-14 | MM_ITS ---
EXAMINATION: MM SCREENING DIGITAL BREAST TOMOSYNTHESIS, BILATERAL CLINICAL INFORMATION: Screening. Asymptomatic. COMPARISON: Mammography: This study is compared with prior exams dating back to 2018. TECHNIQUE: Digital breast tomosynthesis is performed in both the craniocaudal and mediolateral oblique views along with computer-aided detection (CAD). Synthesized 2D images are generated from the tomosynthesis. FINDINGS: There are scattered areas of fibroglandular density (ACR BI-RADS breast composition Category b). There are no significant masses, abnormal calcifications, or other abnormalities. There is a biopsy tissue marker in the right breast. MM/MM tomosynthesis screening BI IMPRESSION: No mammographic evidence of malignancy. ASSESSMENT: BI-RADS BI-RADS 2 - Benign Findings RECOMMENDATION: Routine annual mammography screening. 1 year F/U This examination should not preclude the clinical evaluation of a suspicious palpable abnormality. This patient's information was entered into a reminder system with a target due date for their next mammogram.
== END 2023-09-14 12:50 | disposition home or self-care (01) ==
LOC: HO.MAMMO 12:49
PROVIDERS: PCP Internal Medicine; Visit Provider Advanced Practice Midwife
DX: Z12.31 Encounter for screening mammogram for malignant neoplasm of breast (principal)
CPT/HCPCS: 77063; 77067

== ENCOUNTER → 2023-09-14 12:51 | Outpatient (BNV) | payer OTHER, SELFPAY | PROVIDERS: PCP Internal Medicine; Visit Provider Radiology Diagnostic Radiology | DX: Z12.31 Encounter for screening mammogram for malignant neoplasm of breast (principal) | CPT/HCPCS: 77063; 77067 ==